=== PATIENT | female | born 1995 | race Caucasian/White ===

== ENCOUNTER 2016-09-20 08:36 | Emergency (ER) | payer BC ==
[2016-09-20 08:44] VITALS: BP 115/79; PULSE 76; RESP 16; TEMP 98.4
[2016-09-20] MEDS ORDERED: TOPICAL SKIN ADHESIVE 1 EACH AMP TOPICAL ONE (08:50)
--- NOTE | 2016-09-20 09:06 | ED ---
General Adult HPI - General Chief complaint: Wound/Laceration Stated complaint: Fall Time Seen by Provider: 09/20/16 08:46 Source: patient, RN notes reviewed Mode of arrival: ambulatory Limitations: no limitations - History of Present Illness Initial comments: Patient 20-year-old female who presents emergency room today with a chief complaint of a laceration to the left side of her back. She does admit that she was getting out of the shower slipped falling hitting the back against the toilet roll cassidy causing this laceration. She states her tetanus is up-to- date. Denies any head injury or loss conscious. Denies any other complaints or symptoms. Patient denies any recent fever, chills, shortness of breath, chest pain, back pain, abdominal pain, nausea or vomiting, numbness or tingling , dysuria or hematuria, constipation or diarrhea, headaches or visual changes, or any other complaints. - Related Data Home Medications Medication Instructions Recorded Confirmed Escitalopram [Lexapro] 15 mg PO DAILY 09/25/14 09/25/14 Previous Rx's Medication Instructions Recorded traZODone HCL [Desyrel] 50 mg PO HS #30 tab 11/22/13 Allergies Allergy/AdvReac Type Severity Reaction Status Date / Time loracarbef [From Lorabid] Allergy Unknown Verified 09/20/16 08:44 Review of Systems ROS Statement: Those systems with pertinent positive or pertinent negative responses have been documented in the HPI. ROS Other: All systems not noted in ROS Statement are negative. Past Medical History Past Medical History: Supraventricular Tachycardia (SVT) Additional Past Medical History / Comment(s): SVT since age 5 under control History of Any Multi-Drug Resistant Organisms: None Reported Past Surgical History: Adenoidectomy Past Psychological History: Anxiety, Depression Smoking Status: Never smoker Past Alcohol Use History: Occasional Past Drug Use History: None Reported General Exam - General Exam Comments Initial Comments: General: The patient is awake and alert, in no distress, and does not appear acutely ill. Eye: Pupils are equal, round and reactive to light, extra-ocular movements are intact. No nystagmus. There is normal conjunctiva bilaterally. No signs of icterus. Ears, nose, mouth and throat: There are moist mucous membranes and no oral lesions. Neck: The neck is supple, there is no tenderness or JVD. Cardiovascular: There is a regular rate and rhythm. No murmur, rub or gallop is appreciated. Respiratory: Lungs are clear to auscultation, respirations are non-labored, breath sounds are equal. No wheezes, stridor, rales, or rhonchi. Musculoskeletal: Normal ROM, no tenderness. Strength 5/5. Sensation intact. Pulses equal bilaterally 2+. Neurological: A&O x 3. CN II-XII intact, There are no obvious motor or sensory deficits. Coordination appears grossly intact. Speech is normal. Skin: 2.5 cm laceration to the posterior left side of her back. No active bleeding. Psychiatric: Cooperative, appropriate mood & affect, normal judgment. Limitations: no limitations Course Vital Signs 09/20/16 08:41 Temperature 98.4 F Pulse Rate 76 Respiratory 16 Rate Blood Pressure 115/79 O2 Sat by Pulse 100 Oximetry Procedures - Procedures Initial comment: 2.5 cm laceration to the left side of the back. Laceration irrigated with saline. Approximated and closed with Dermabond. Patient tolerated well. Disposition Clinical Impression: Laceration Disposition: HOME SELF-CARE Condition: Good Instructions: Laceration (ED) Additional Instructions: Please allow glue to fall off on its own over the next 2-5 days. Please watch for any signs of infection which may include increased pain, swelling, redness, fever or chills. Please return to emergency room if the symptoms increase or worsen or for any other concerns. Referrals: Hieu Nuñez MD [Primary Care Provider] - 1-2 days Time of Disposition: 09:05
== END 2016-09-20 09:36 | disposition home or self-care (01) ==
LOC: EC 08:36
DX: S31.010A Laceration without foreign body of lower back and pelvis without penetration into retroperitoneum, initial encounter (principal); F32.9 Major depressive disorder, single episode, unspecified; F41.9 Anxiety disorder, unspecified; Z79.899 Other long term (current) drug therapy; Z88.8 Allergy status to other drugs, medicaments and biological substances; W01.198A Fall on same level from slipping, tripping and stumbling with subsequent striking against other object, initial encounter; Y92.002 Bathroom of unspecified non-institutional (private) residence as the place of occurrence of the external cause
CPT/HCPCS: 12001; 99282

== ENCOUNTER 2019-03-24 11:46 | Emergency (ER) | payer BC ==
[2019-03-24] MEDS ORDERED: ADENOSINE 3 MG/ML 2 ML VIAL IVP STA (12:18)
[2019-03-24] MEDS ORDERED: SODIUM CHLORIDE 0.9% 1,000 ML IV STA (12:26)
[2019-03-24 12:50] LABS: Basophils % (A) 1 %; Eosinophils % (A) 1 %; HCT 37.7 % (34.0-46.0); HGB 13.1 gm/dL (11.4-16.0); Lymphocytes # (A) 1.7 k/uL (1.0-4.8); Lymphocytes % (A) 33 %; MCH 33.7 pg (25.0-35.0); MCHC 34.7 g/dL (31.0-37.0); MCV 97.1 fL (80.0-100.0); Mean Platelet Volume 8.3; Monocytes # (A) 0.3 k/uL (0-1.0); Monocytes % (A) 5 %; Neutrophils % (A) 58 %; Platelet Count 274 k/uL (150-450); RBC 3.88 m/uL (3.80-5.40); RDW 12.2 % (11.5-15.5); WBC 5.1 k/uL (3.8-10.6)
[2019-03-24 13:06] LABS: ALT 8 U/L (4-34); AST 21 U/L (14-36); African American GFR (CKD) >90 (>60 ml/min/1.73 sqM); Alkaline Phosphatase 61 U/L (38-126); Anion Gap 7 mmol/L; Blood Urea Nitrogen 9 mg/dL (7-17); Calcium 9.4 mg/dL (8.4-10.2); Carbon Dioxide 23 mmol/L (22-30); Chloride 109 mmol/L (98-107); Glucose 87 mg/dL (74-99); Magnesium 2.1 mg/dL (1.6-2.3); Non-African American GFR(CKD) >90 (>60 ml/min/1.73 sqM); Potassium 4.3 mmol/L (3.5-5.1); Sodium 139 mmol/L (137-145); Total Bilirubin 0.7 mg/dL (0.2-1.3); Total Protein 6.6 g/dL (6.3-8.2)
--- NOTE | 2019-03-24 13:11 | XR ---
EXAMINATION TYPE: XR chest 2V DATE OF EXAM: 03/24/2019 CLINICAL HISTORY: Dysrhythmia. TECHNIQUE: Frontal and lateral views of the chest are obtained. COMPARISON: None FINDINGS: Overlying EKG leads are seen. There is no focal air space opacity, pleural effusion, or pne umothorax seen. The cardiac silhouette size is within normal limits. The osseous structures are in tact. IMPRESSION: No acute cardiopulmonary process. No significant change from prior.
--- NOTE | 2019-03-24 13:52 | ED ---
Arrhythmia/Palpitations HPI - General Chief Complaint: Arrhythmia/Palpitations Stated Complaint: SVT Time Seen by Provider: 03/24/19 11:55 Source: patient Mode of arrival: ambulatory Limitations: no limitations - History of Present Illness Initial Comments: The patient is a 23-year-old female with past medical history of SVT who presents to the emergency room in with chest palpitations. She states that she has had multiple episodes of SVT since she was 5 years old. She does have atenolol at home at her disposal that she can take when she gets palpitations. Around 7 PM last night she began having a rapid heart rate. She said that she took 4 of her 10 mg atenolol's, each were half hour apart. Last dose was taken around 9 PM. She states that normally her heart rate will slow on its own. She did attempt to go to sleep and woke up and still had symptoms. She does see a [employer] administrator in [place]. They have discussed ablation with her however she has yet to follow up. States that she will have an episode once every 5 months. She has frequently had to have adenosine for persistent palpitations. She denies any inciting triggers. No increased pain intake. Denies possibility been . Denies any chest pain or shortness of breath. No fevers or chills. Denies any recent illnesses. There are no alleviating, precipitating or modifying factors - Related Data Home Medications Medication Instructions Recorded Confirmed Atenolol [Tenormin] 25 mg PO DAILY 03/24/19 03/24/19 Escitalopram [Lexapro] 20 mg PO DAILY 03/24/19 03/24/19 LORazepam [Ativan] 0.5 mg PO BID 03/24/19 03/24/19 Melatonin 10 mg PO HS 03/24/19 03/24/19 Norethindrone-E.estradiol-Iron 1 cap PO DAILY 03/24/19 03/24/19 [Taytulla 1 mg-20 Mcg Capsule] Allergies Allergy/AdvReac Type Severity Reaction Status Date / Time loracarbef [From Lorabid] Allergy Rash/Hives Verified 09/20/16 09:06 Review of Systems ROS Statement: Those systems with pertinent positive or pertinent negative responses have been documented in the HPI. ROS Other: All systems not noted in ROS Statement are negative. Past Medical History Past Medical History: Supraventricular Tachycardia (SVT) Additional Past Medical History / Comment(s): SVT since age 5 under control History of Any Multi-Drug Resistant Organisms: None Reported Past Surgical History: Adenoidectomy Past Psychological History: Anxiety, Depression Smoking Status: Never smoker Past Alcohol Use History: Occasional Past Drug Use History: None Reported General Exam Limitations: no limitations General appearance: alert, in no apparent distress Head exam: Present: atraumatic, normocephalic, normal inspection Eye exam: Present: normal appearance, PERRL, EOMI. Absent: scleral icterus, conjunctival injection, periorbital swelling ENT exam: Present: normal exam, mucous membranes moist Neck exam: Present: normal inspection. Absent: tenderness, meningismus, lymphadenopathy Respiratory exam: Present: normal lung sounds bilaterally. Absent: respiratory distress, wheezes, rales, rhonchi, stridor Cardiovascular Exam: Present: normal rhythm, tachycardia, normal heart sounds. Absent: systolic murmur, diastolic murmur, rubs, gallop, clicks GI/Abdominal exam: Present: soft, normal bowel sounds. Absent: distended, tenderness, guarding, rebound, rigid Extremities exam: Present: normal inspection, full ROM, normal capillary refill. Absent: tenderness, pedal edema, joint swelling, calf tenderness Back exam: Present: normal inspection Neurological exam: Present: alert, oriented X3, CN II-XII intact Psychiatric exam: Present: normal affect, normal mood Skin exam: Present: warm, dry, intact, normal color. Absent: rash Course Vital Signs 03/24/19 03/24/19 03/24/19 11:58 12:03 12:24 Temperature 97.4 F L Pulse Rate 164 H 155 H 103 H Respiratory 19 22 Rate Blood Pressure 87/70 102/76 O2 Sat by Pulse 100 100 Oximetry 03/24/19 03/24/19 03/24/19 13:00 13:51 14:30 Temperature 98.3 F Pulse Rate 94 95 88 Respiratory 19 17 18 Rate Blood Pressure 94/64 96/74 111/69 O2 Sat by Pulse 100 98 98 Oximetry EKG Findings - EKG Comments: EKG Findings:: EKG performed at 1213 demonstrates supraventricular tachycardia with rate 155. QRS knee. QTC of 449. st segment elevations or depressions concerning for ischemic changes. No signs of Ioecm-[id number] or Brugada syndrome. EKG performed at 1223 after adenosine having given shows a normal sinus rhythm with ventricular rate of 96. SD interval 138. QRS 76. QTC of 424. There are no acute ST segment elevations or depressions concerning for ischemic changes Medical Decision Making - Medical Decision Making Upon arrival the patient was placed in the trauma bay 2. She is hooked up to continuous pulse ox and cardiac monitoring. Peripheral IV is established. Vagal maneuvers are attempted on the patient about improvement. 12-lead EKG is performed which demonstrates the patient is in SVT. I did provide her with 6 mg of adenosine for which she does convert. Repeat EKG does demonstrate a normal sinus rhythm. I did recommend complete laboratory studies which were normal. HCG was negative. Urinalysis shows 8 squamous epithelial cells with rare bacteria. Chest x-ray demonstrates no acute findings. Discussed results with the patient. She does request to go home at this time. I did give her follow- up information for Dr. Whalen's office. Return to the emergency room for any new or worsening symptoms. The patient was then discharged home in stable condition - Lab Data Result diagrams: 03/24/19 12:30 03/24/19 12:30 Lab Results 03/24/19 03/24/19 03/24/19 Range/Units 12:30 12:30 13:30 WBC 5.1 (3.8-10.6) k/uL RBC 3.88 (3.80-5.40) m/uL Hgb 13.1 (11.4-16.0) gm/dL Hct 37.7 (34.0-46.0) % MCV 97.1 (80.0-100.0) fL MCH 33.7 (25.0-35.0) pg MCHC 34.7 (31.0-37.0) g/dL RDW 12.2 (11.5-15.5) % Plt Count 274 (150-450) k/uL Neutrophils % 58 % Lymphocytes % 33 % Monocytes % 5 % Eosinophils % 1 % Basophils % 1 % Neutrophils # 3.0 (1.3-7.7) k/uL Lymphocytes # 1.7 (1.0-4.8) k/uL Monocytes # 0.3 (0-1.0) k/uL Eosinophils # 0.0 (0-0.7) k/uL Basophils # 0.0 (0-0.2) k/uL Sodium 139 (137-145) mmol/L Potassium 4.3 (3.5-5.1) mmol/L Chloride 109 H (98-107) mmol/L Carbon Dioxide 23 (22-30) mmol/L Anion Gap 7 mmol/L BUN 9 (7-17) mg/dL Creatinine 0.77 (0.52-1.04) mg/dL Est GFR (CKD-EPI)AfAm >90 (>60 ml/min/1.73 sqM) Est GFR (CKD-EPI)NonAf >90 (>60 ml/min/1.73 sqM) Glucose 87 (74-99) mg/dL Calcium 9.4 (8.4-10.2) mg/dL Magnesium 2.1 (1.6-2.3) mg/dL Total Bilirubin 0.7 (0.2-1.3) mg/dL AST 21 (14-36) U/L ALT 8 (4-34) U/L Alkaline Phosphatase 61 (38-126) U/L Total Protein 6.6 (6.3-8.2) g/dL Albumin 4.0 (3.5-5.0) g/dL TSH 1.140 (0.465-4.680) mIU/L Urine Color Urine Appearance (Clear) Urine pH (5.0-8.0) Ur Specific [place] (1.001-1.035) Urine Protein (Negative) Urine Glucose (UA) (Negative) Urine Ketones (Negative) Urine Blood (Negative) Urine Nitrite (Negative) Urine Bilirubin (Negative) Urine Urobilinogen (<2.0) mg/dL Ur Leukocyte Esterase (Negative) Urine WBC (0-5) /hpf Ur Squamous Epith Cells (0-4) /hpf Urine Bacteria (None) /hpf Urine Mucus (None) /hpf Urine HCG, Qual Not Detected (Not Detectd) 03/24/19 Range/Units 13:30 WBC (3.8-10.6) k/uL RBC (3.80-5.40) m/uL Hgb (11.4-16.0) gm/dL Hct (34.0-46.0) % MCV (80.0-100.0) fL MCH (25.0-35.0) pg MCHC (31.0-37.0) g/dL RDW (11.5-15.5) % Plt Count (150-450) k/uL Neutrophils % % Lymphocytes % % Monocytes % % Eosinophils % % Basophils % % Neutrophils # (1.3-7.7) k/uL Lymphocytes # (1.0-4.8) k/uL Monocytes # (0-1.0) k/uL Eosinophils # (0-0.7) k/uL Basophils # (0-0.2) k/uL Sodium (137-145) mmol/L Potassium (3.5-5.1) mmol/L Chloride (98-107) mmol/L Carbon Dioxide (22-30) mmol/L Anion Gap mmol/L BUN (7-17) mg/dL Creatinine (0.52-1.04) mg/dL Est GFR (CKD-EPI)AfAm (>60 ml/min/1.73 sqM) Est GFR (CKD-EPI)NonAf (>60 ml/min/1.73 sqM) Glucose (74-99) mg/dL Calcium (8.4-10.2) mg/dL Magnesium (1.6-2.3) mg/dL Total Bilirubin (0.2-1.3) mg/dL AST (14-36) U/L ALT (4-34) U/L Alkaline Phosphatase (38-126) U/L Total Protein (6.3-8.2) g/dL Albumin (3.5-5.0) g/dL TSH (0.465-4.680) mIU/L Urine Color Yellow Urine Appearance Cloudy H (Clear) Urine pH 7.5 (5.0-8.0) Ur Specific [place] 1.013 (1.001-1.035) Urine Protein Negative (Negative) Urine Glucose (UA) Negative (Negative) Urine Ketones Negative (Negative) Urine Blood Negative (Negative) Urine Nitrite Negative (Negative) Urine Bilirubin Negative (Negative) Urine Urobilinogen <2.0 (<2.0) mg/dL Ur Leukocyte Esterase Trace H (Negative) Urine WBC 2 (0-5) /hpf Ur Squamous Epith Cells 8 H (0-4) /hpf Urine Bacteria Rare H (None) /hpf Urine Mucus Rare H (None) /hpf Urine HCG, Qual (Not Detectd) Critical Care Time Critical Care Time: Yes Total Critical Care Time: 35 (mins) Disposition Clinical Impression: Supraventricular tachycardia Disposition: HOME SELF-CARE Condition: Stable Instructions (If sedation given, give patient instructions): Supraventricular Tachycardia (ED) Additional Instructions: Please follow up with Dr. Caceres in office for further evaluation. Return to the emergency room for any new or worsening symptoms Is patient prescribed a controlled substance at d/c from ED?: No Referrals: Antoine Bailey MD [Primary Care Provider] - 1-2 days Paco Abel MD [STAFF PHYSICIAN] - 1-2 days Time of Disposition: 14:02
[2019-03-24 14:19] LABS: Appearance,Urine Cloudy (Clear); Bacteria,Urine Rare /hpf; Bilirubin,Urine Negative (Negative); Blood,Urine Negative (Negative); Color,Urine Yellow; Glucose,Urine (UA) Negative (Negative); Ketones,Urine Negative (Negative); Leukocyte Esterase,Urine Trace (Negative); Mucus,Urine Rare /hpf; Nitrite,Urine Negative (Negative); PH, Urine 7.5 (5.0-8.0); Protein,Urine Negative (Negative); Specific Gravity,Urine 1.013 (1.001-1.035); Squamous Epithelial Cell,Urine 8 /hpf (0-4); Urobilinogen,Urine <2.0 mg/dL (<2.0); WBC,Urine 2 /hpf (0-5)
[2019-03-24 14:37] VITALS: BP 111/69; PULSE 88; RESP 18; TEMP 98.3
== END 2019-03-24 14:30 | disposition home or self-care (01) ==
LOC: EC 11:46
DX: I47.1 Supraventricular tachycardia (principal); R82.998 Other abnormal findings in urine; F41.9 Anxiety disorder, unspecified; F32.9 Major depressive disorder, single episode, unspecified; Z79.899 Other long term (current) drug therapy; Z79.3 Long term (current) use of hormonal contraceptives; Z88.1 Allergy status to other antibiotic agents
CPT/HCPCS: 96374; 99291; 96361; 36415; 93005; 80053; 83735; 84443; 85025; 81001; 81025; 71046; J0153

== ENCOUNTER 2019-04-12 03:38 | Emergency (ER) | payer BC ==
[2019-04-12 03:54] VITALS: TEMP 98.1
[2019-04-12] MEDS ORDERED: LORazepam 1 MG TAB PO STA (04:15)
[2019-04-12] MEDS ORDERED: ATENOLOL 25 MG TAB PO STA (04:15)
--- NOTE | 2019-04-12 04:17 | ED ---
General Adult HPI - General Chief complaint: Anxiety Stated complaint: Panic attack Time Seen by Provider: 04/12/19 03:53 Source: patient Mode of arrival: ambulatory Limitations: no limitations - History of Present Illness Initial comments: Mari taylor 23-year-old female with a history of SVT who presents to the ER today for evaluation of palpitations, concerned that she is in SVT an acute anxiety. Patient reports that she woke from sleep having a bad dream and feeling like her heart was racing. She tried to calm herself but her heart continued to race and she is concerned she was in SVT. She didn't have any of her atenolol with her so she decided to come to the emergency department for further evaluation. Patient reports she really feels that she started to panic due to her heart racing but she is feeling better since arrival in the emergency department. She denies any chest pain passing out. Her last episode of SVT was in March. 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 Patient states she doesn't take of atenolol daily and only takes it when she is having palpitations - Related Data Home Medications Medication Instructions Recorded Confirmed Atenolol [Tenormin] 25 mg PO DAILY 03/24/19 03/24/19 Escitalopram [Lexapro] 20 mg PO DAILY 03/24/19 03/24/19 LORazepam [Ativan] 0.5 mg PO BID 03/24/19 03/24/19 Melatonin 10 mg PO HS 03/24/19 03/24/19 Norethindrone-E.estradiol-Iron 1 cap PO DAILY 03/24/19 03/24/19 [Taytulla 1 mg-20 Mcg Capsule] Allergies Allergy/AdvReac Type Severity Reaction Status Date / Time loracarbef [From Lorabid] Allergy Rash/Hives Verified 04/12/19 03:47 Review of Systems ROS Statement: Those systems with pertinent positive or pertinent negative responses have been documented in the HPI. ROS Other: All systems not noted in ROS Statement are negative. Past Medical History Past Medical History: Supraventricular Tachycardia (SVT) Additional Past Medical History / Comment(s): SVT since age 5 under control History of Any Multi-Drug Resistant Organisms: None Reported Past Surgical History: Adenoidectomy Past Psychological History: Anxiety, Depression, Panic Disorder Smoking Status: Never smoker Past Alcohol Use History: Occasional Past Drug Use History: Marijuana General Exam - General Exam Comments Initial Comments: Physical Exam GENERAL: Patient is well-developed and well-nourished. Patient is nontoxic and well- hydrated and is in no distress. HENT: Normocephalic, Atraumatic. EYES: PERRL, EOMI PULMONARY: Unlabored respirations. No audible rales rhonchi or wheezing was noted. CARDIOVASCULAR: Tachycardic, regular warm and well perfused extremities ABDOMEN: Soft and nontender with normal bowel sounds. SKIN: Skin is clear with no lesions or rashes and otherwise unremarkable. : Deferred NEUROLOGIC: Patient is alert and oriented x3. Moving all extremities spontaneously MUSCULOSKELETAL: Normal extremities with adequate strength and full range of motion. No lower extremity swelling or edema. No calf tenderness. PSYCHIATRIC: Appropriate situational anxiety Limitations: no limitations Course Vital Signs 04/12/19 04/12/19 03:45 04:30 Temperature 98.1 F Pulse Rate 143 H 120 H Respiratory 20 18 Rate Blood Pressure 140/83 123/80 O2 Sat by Pulse 97 98 Oximetry EKG Findings - EKG Comments: EKG Findings:: EKG was obtained due to tachycardia, EKG was obtained at 3:55 AM, rate is 126 rhythm is sinus tachycardia normal axis, normal intervals, MA 1:30, curious 90, QTc [address] elevations or depressions no evidence of acute ischemia or infarction. This is not an SVT pattern. Medical Decision Making - Medical Decision Making She was seen and evaluated history is obtained from the patient, upon arrival in the emergency department patient was tachycardic to the 140s however bedside EKG was obtained she dirty improved to the 1 teens and on evaluation was in the low 1 teens. States she was concerned that she had SVT and that made her very anxious which prompted her to come to the ER. She did not take her atenolol prior to arrival. She had no chest pain. Oral atenolol and Ativan were ordered and given. Reevaluation patient was sleeping comfortably, she reported feeling much better and comfortable plan for discharge home she did request a prescription for Ativan I advised this is not prescribed by urology follow-up with primary care physician for this. I did advise she follow with her bag machine operator helper given her recurrent episodes of tachycardia they seem to be happening more critically. Disposition Clinical Impression: Heart palpitations Disposition: HOME SELF-CARE Condition: Stable Instructions (If sedation given, give patient instructions): Heart Palpitations (DC) Is patient prescribed a controlled substance at d/c from ED?: No Referrals: Antoine Bailey MD [Primary Care Provider] - 1-2 days
[2019-04-12 04:31] VITALS: BP 123/80; PULSE 120; RESP 18
== END 2019-04-12 05:43 | disposition home or self-care (01) ==
LOC: EC 03:38
DX: R00.2 Palpitations (principal); R00.0 Tachycardia, unspecified; F43.22 Adjustment disorder with anxiety; F32.9 Major depressive disorder, single episode, unspecified; Z88.1 Allergy status to other antibiotic agents; Z79.3 Long term (current) use of hormonal contraceptives; Z79.899 Other long term (current) drug therapy
CPT/HCPCS: 93005; 99283

== ENCOUNTER 2020-12-04 21:56 | Inpatient (IN) | payer BC, MEDICAID, OTHER ==
--- NOTE | 2020-12-04 23:05 | ED ---
Psych HPI <Oz Reagan - Last Filed: 12/05/20 01:06> - General Source: patient, police, RN notes reviewed Limitations: no limitations <Sergio Berry - Last Filed: 12/05/20 01:22> - General Chief Complaint: Psychiatric Symptoms Stated Complaint: Petition Time Seen by Provider: 12/04/20 21:58 - History of Present Illness Initial Comments: This a 24-year-old female presents emergency Department with police for psychiatric evaluation. Patient was picked up on a court ordered waste picker for evaluation. She is unclear why this is happening patient states she did walk out of her appointment with her therapist today states that she is new to her and that she just doesn't understand her. Patient denies complaints or homicid al does admit to marijuana use or drug abuse denies alcohol abuse. Patient has no physical complaints. (Sergio Berry) - Related Data Home Medications Medication Instructions Recorded Confirmed LORazepam [Ativan] 0.5 mg PO BID PRN 03/24/19 12/04/20 Norethindrone AC-Eth Estradiol 1 tab PO DAILY 12/04/20 12/04/20 [Aurovela 1 mg-20 Mcg Tablet] Venlafaxine HCl ER [Effexor XR] 75 mg PO DAILY 12/04/20 12/04/20 Allergies Allergy/AdvReac Type Severity Reaction Status Date / Time loracarbef [From Lorabid] Allergy Rash/Hives Verified 12/04/20 23:19 Review of Systems ROS Other: All systems not noted in ROS Statement are negative. <Oz Reagan - Last Filed: 12/05/20 01:06> ROS Other: All systems not noted in ROS Statement are negative. <Sergio Berry - Last Filed: 12/05/20 01:22> ROS Statement: Those systems with pertinent positive or pertinent negative responses have been documented in the HPI. Past Medical History Past Medical History: Supraventricular Tachycardia (SVT) Additional Past Medical History / Comment(s): SVT since age 5 under control History of Any Multi-Drug Resistant Organisms: None Reported Past Surgical History: Adenoidectomy Past Psychological History: Anxiety, Depression Smoking Status: Current every day smoker Past Drug Use History: None Reported <Sergio Berry - Last Filed: 12/05/20 01:22> General Exam Limitations: no limitations General appearance: alert, in no apparent distress Head exam: Present: atraumatic, normocephalic, normal inspection Neck exam: Present: normal inspection. Absent: tenderness, meningismus, lymphadenopathy Respiratory exam: Present: normal lung sounds bilaterally. Absent: respiratory distress, wheezes, rales, rhonchi, stridor Cardiovascular Exam: Present: regular rate, normal rhythm, normal heart sounds. Absent: systolic murmur, diastolic murmur, rubs, gallop, clicks Psychiatric exam: Present: agitated Skin exam: Present: warm, dry, intact, normal color. Absent: rash <Sergio Berry - Last Filed: 12/05/20 01:22> Course Vital Signs 12/04/20 22:05 Temperature 98 F Pulse Rate 90 Respiratory 24 Rate Blood Pressure 122/77 O2 Sat by Pulse 97 Oximetry Medical Decision Making <Oz Reagan - Last Filed: 12/05/20 01:06> <Sergio Berry - Last Filed: 12/05/20 01:22> - Medical Decision Making I did see this patient, conducted the interview and file the clinical certificate. (Oz Reagan) Patient was a valid by EPS case discussed with psychiatrist patient will be admitted for further evaluation. (Sergio Berry) - Lab Data Lab Results 12/04/20 12/05/20 Range/Units 22:10 00:45 Urine Opiates Screen Not Detected (NotDetected) Ur Oxycodone Screen Not Detected (NotDetected) Urine Methadone Screen Not Detected (NotDetected) Ur Propoxyphene Screen Not Detected (NotDetected) Ur Barbiturates Screen Not Detected (NotDetected) U Tricyclic Antidepress Not Detected (NotDetected) Ur Phencyclidine Scrn Not Detected (NotDetected) Ur Amphetamines Screen Not Detected (NotDetected) U Methamphetamines Scrn Not Detected (NotDetected) U Benzodiazepines Scrn Not Detected (NotDetected) Urine Cocaine Screen Not Detected (NotDetected) U Marijuana (THC) Screen Detected H (NotDetected) Coronavirus (PCR) Not Detected (Not Detectd) Disposition <Oz Reagan - Last Filed: 12/05/20 01:06> <Sergio Berry - Last Filed: 12/05/20 01:22> Clinical Impression: Depression Disposition: TRANSFER TO PSYCH HOSP/UNIT Referrals: None,Stated [Primary Care Provider] - 1-2 days
[2020-12-04 23:21] LABS: Amphetamine Screen,Urine Not Detected (NotDetected); Barbiturate Screen,Urine Not Detected (NotDetected); Benzodiazepines Screen,Urine Not Detected (NotDetected); Cocaine Screen,Urine Not Detected (NotDetected); Methadone Screen, Urine Not Detected (NotDetected); Opiate Screen,Urine Not Detected (NotDetected); Oxycodone Screen, Urine Not Detected (NotDetected); Phencyclidine Screen,Urine Not Detected (NotDetected); Tricyclic Antidepressant,Urine Not Detected (NotDetected); Urn Cannabinoid Scrn Detected (NotDetected)
[2020-12-05] MEDS ORDERED: MAGNESIUM HYDROXIDE 2,400 MG/10 ML CUP PO PRN (01:45)
[2020-12-05] MEDS ORDERED: ACETAMINOPHEN TAB 325 MG TAB PO PRN (01:45)
[2020-12-05] MEDS ORDERED: MAG HYDROX/AL HYDROX/SIMETH 30 ML CUP PO PRN (01:45)
[2020-12-05] MEDS ORDERED: HALOPERIDOL LACTATE 5 MG/ML 1 ML VIAL IM PRN (01:50)
[2020-12-05] MEDS ORDERED: haloperidoL 5 MG TAB PO PRN ×2 (01:50→03:30)
[2020-12-05] MEDS ORDERED: LORazepam 2 MG/ML INJ IM PRN ×2 (01:50→01:52)
[2020-12-05] MEDS ORDERED: VENLAFAXINE HCL 75 MG TAB PO SCH ×2 (02:30→09:00)
[2020-12-05 02:34] LABS: Appearance,Urine Clear (Clear); Bacteria,Urine Rare /hpf; Bilirubin,Urine Negative (Negative); Blood,Urine Large (Negative); Color,Urine Light Yellow; Glucose,Urine (UA) Negative (Negative); Ketones,Urine Negative (Negative); Leukocyte Esterase,Urine Negative (Negative); Nitrite,Urine Negative (Negative); PH, Urine 6.5 (5.0-8.0); Protein,Urine Negative (Negative); RBC,Urine 6 /hpf (0-5); Specific Gravity,Urine 1.005 (1.001-1.035); Squamous Epithelial Cell,Urine 6 /hpf (0-4); Urobilinogen,Urine <2.0 mg/dL (<2.0); WBC,Urine 1 /hpf (0-5)
[2020-12-05] MEDS: LORazepam 1 MG TAB PO PRN ×2 (02:36→14:27)
[2020-12-05 08:03] LABS: Basophils % (A) 0 %; Eosinophils % (A) 0 %; HGB 12.7 gm/dL (11.4-16.0); Lymphocytes # (A) 1.4 k/uL (1.0-4.8); Lymphocytes % (A) 15 %; MCHC 33.5 g/dL (31.0-37.0); MCV 101.7 fL (80.0-100.0); Macrocytosis Slight; Mean Platelet Volume 8.2; Monocytes # (A) 0.3 k/uL (0-1.0); Monocytes % (A) 3 %; Neutrophils # (A) 7.4 k/uL (1.3-7.7); Neutrophils % (A) 80 %; Platelet Count 294 k/uL (150-450); RBC 3.74 m/uL (3.80-5.40); RDW 13.2 % (11.5-15.5); WBC 9.3 k/uL (3.8-10.6)
[2020-12-05 08:15] LABS: ALT 6 U/L (4-34); AST 24 U/L (14-36); African American GFR (CKD) >90 (>60 ml/min/1.73 sqM); Albumin 4.4 g/dL (3.5-5.0); Alkaline Phosphatase 76 U/L (38-126); Anion Gap 11 mmol/L; Bilirubin, Delta 0.1 mg/dL (0.0-0.2); Bilirubin,Unconjugated 0.6 mg/dL (0.0-1.1); Blood Urea Nitrogen 8 mg/dL (7-17); Calcium 9.9 mg/dL (8.4-10.2); Carbon Dioxide 22 mmol/L (22-30); Chloride 105 mmol/L (98-107); Glucose 95 mg/dL (74-99); Non-African American GFR(CKD) >90 (>60 ml/min/1.73 sqM); Sodium 138 mmol/L (137-145); Total Bilirubin 0.7 mg/dL (0.2-1.3); Total Protein 7.2 g/dL (6.3-8.2)
[2020-12-05] MEDS ORDERED: NICOTINE 14MG/24HR PATCH TRANSDERM SCH (09:00)
--- NOTE | 2020-12-05 12:02 | P.HP ---
Psychiatric H&P - . H&P Date: 12/05/20 History & Physical: Allergies Allergy/AdvReac Type Severity Reaction Status Date / Time loracarbef From Lorabid Allergy Rash/Hives Verified 12/04/20 23:19 Vital Signs Temp 98.1 F 12/05/20 02:34 Pulse 121 H 12/05/20 02:34 Resp 16 12/05/20 02:34 BP 126/80 12/05/20 02:34 Pulse Ox 98 12/05/20 02:34 Intake & Output 12/04/20 12/05/20 12/05/20 18:59 06:59 18:59 Weight 55 kg Laboratory Last Values WBC 9.3 k/uL (3.8-10.6) 12/05/20 07:01 RBC 3.74 m/uL (3.80-5.40) L 12/05/20 07:01 Hgb 12.7 gm/dL (11.4-16.0) 12/05/20 07:01 Hct 38.0 % (34.0-46.0) 12/05/20 07:01 MCV 101.7 fL (80.0-100.0) H 12/05/20 07:01 MCH 34.0 pg (25.0-35.0) 12/05/20 07:01 MCHC 33.5 g/dL (31.0-37.0) 12/05/20 07:01 RDW 13.2 % (11.5-15.5) 12/05/20 07:01 Plt Count 294 k/uL (150-450) 12/05/20 07:01 MPV 8.2 12/05/20 07:01 Neutrophils % 80 % 12/05/20 07:01 Lymphocytes % 15 % 12/05/20 07:01 Monocytes % 3 % 12/05/20 07:01 Eosinophils % 0 % 12/05/20 07:01 Basophils % 0 % 12/05/20 07:01 Neutrophils # 7.4 k/uL (1.3-7.7) 12/05/20 07:01 Lymphocytes # 1.4 k/uL (1.0-4.8) 12/05/20 07:01 Monocytes # 0.3 k/uL (0-1.0) 12/05/20 07:01 Eosinophils # 0.0 k/uL (0-0.7) 12/05/20 07:01 Basophils # 0.0 k/uL (0-0.2) 12/05/20 07:01 Macrocytosis Slight 12/05/20 07:01 Sodium 138 mmol/L (137-145) 12/05/20 07:01 Potassium 4.0 mmol/L (3.5-5.1) 12/05/20 07:01 Chloride 105 mmol/L (98-107) 12/05/20 07:01 Carbon Dioxide 22 mmol/L (22-30) 12/05/20 07:01 Anion Gap 11 mmol/L 12/05/20 07:01 BUN 8 mg/dL (7-17) 12/05/20 07:01 Creatinine 0.54 mg/dL (0.52-1.04) 12/05/20 07:01 Est GFR (CKD-EPI)AfAm >90 (>60 ml/min/1.73 sqM) 12/05/20 07:01 Est GFR (CKD-EPI)NonAf >90 (>60 ml/min/1.73 sqM) 12/05/20 07:01 Glucose 95 mg/dL (74-99) 12/05/20 07:01 Calcium 9.9 mg/dL (8.4-10.2) 12/05/20 07:01 Total Bilirubin 0.7 mg/dL (0.2-1.3) 12/05/20 07:01 Conjugated Bilirubin 0.0 mg/dL (0.0-0.3) 12/05/20 07:01 Unconjugated Bilirubin 0.6 mg/dL (0.0-1.1) 12/05/20 07:01 Delta Bilirubin 0.1 mg/dL (0.0-0.2) 12/05/20 07:01 AST 24 U/L (14-36) 12/05/20 07:01 ALT 6 U/L (4-34) 12/05/20 07:01 Alkaline Phosphatase 76 U/L (38-126) 12/05/20 07:01 Total Protein 7.2 g/dL (6.3-8.2) 12/05/20 07:01 Albumin 4.4 g/dL (3.5-5.0) 12/05/20 07:01 TSH 1.430 mIU/L (0.465-4.680) 12/05/20 07:01 Urine Color Light Yellow 12/05/20 Unknown Urine Appearance Clear (Clear) 12/05/20 Unknown Urine pH 6.5 (5.0-8.0) 12/05/20 Unknown Ur Specific [place] 1.005 (1.001-1.035) 12/05/20 Unknown Urine Protein Negative (Negative) 12/05/20 Unknown Urine Glucose (UA) Negative (Negative) 12/05/20 Unknown Urine Ketones Negative (Negative) 12/05/20 Unknown Urine Blood Large (Negative) H 12/05/20 Unknown Urine Nitrite Negative (Negative) 12/05/20 Unknown Urine Bilirubin Negative (Negative) 12/05/20 Unknown Urine Urobilinogen <2.0 mg/dL (<2.0) 12/05/20 Unknown Ur Leukocyte Esterase Negative (Negative) 12/05/20 Unknown Urine RBC 6 /hpf (0-5) H 12/05/20 Unknown Urine WBC 1 /hpf (0-5) 12/05/20 Unknown Ur Squamous Epith Cells 6 /hpf (0-4) H 12/05/20 Unknown Urine Bacteria Rare /hpf (None) H 12/05/20 Unknown Urine HCG, Qual Not Detected (Not Detectd) 12/05/20 Unknown Urine Opiates Screen Not Detected (NotDetected) 12/04/20 22:10 Ur Oxycodone Screen Not Detected (NotDetected) 12/04/20 22:10 Urine Methadone Screen Not Detected (NotDetected) 12/04/20 22:10 Ur Propoxyphene Screen Not Detected (NotDetected) 12/04/20 22:10 Ur Barbiturates Screen Not Detected (NotDetected) 12/04/20 22:10 U Tricyclic Antidepress Not Detected (NotDetected) 12/04/20 22:10 Ur Phencyclidine Scrn Not Detected (NotDetected) 12/04/20 22:10 Ur Amphetamines Screen Not Detected (NotDetected) 12/04/20 22:10 U Methamphetamines Scrn Not Detected (NotDetected) 12/04/20 22:10 U Benzodiazepines Scrn Not Detected (NotDetected) 12/04/20 22:10 Urine Cocaine Screen Not Detected (NotDetected) 12/04/20 22:10 U Marijuana (THC) Screen Detected (NotDetected) H 12/04/20 22:10 Coronavirus (PCR) Not Detected (Not Detectd) 12/05/20 00:45 12/05/20 11:20 IDENTIFYING DATA: Patient is a 24 yo female who has a hx of boderline and bipolar disorder who currently lives alone in an apartment, no kids, currently unemployed HPI: Patient presented to the hospital yesterday on a pick up attendant order brought in by police from [facility]. According to petition filled out by case packer at [facility] who states that patient was making suicidal comments about giving the treatment two weeks before she kills herself. Patient also mentioned in the ER that her therapist was new to her and didn't understand her. Her UDS positive for THC. Patient was seen wandering always and agreeable to speak to technical writer and editor in the office. She appeared to be tearful at times during the interview and was suspicious of technical writer and editor. She claims that she is feeling scared on the unit and claims that her [facility] appointment with her new therapist was not going well. She states that she was feeling depressed and suicidal and claims that "she didn't know what to say to me" and she states that she left the appointment early. She claims that she has stressors in her life including financially that her unemployment is going to "run out soon" and states that she cannot go back to work as she does not feel good. She had several questions about her diagnosis. She states that she is feeling sad and depressed. She claims that she is also suffering from anxiety. She states that she has been having chronic suicidal thoughts since she was 9 years old. She states that she also does have mood swings. She claims that her sleep has been "on and off". She claims that she is still feeling suicidal however no intent or plan today. Did describe manic symptoms in the past however was fairly vague. Patient denies any homicidal ideations intent or plan. At this time patient denies any auditory or visual hallucinations. Patient denies any flight of ideas racing thoughts and increased in goal directed behavior. Patient admits to using marijuana cheek daily approximately 1 joint a day. She states that she did not use any other recreational drugs and does not use cigarettes. PAST PSYCHIATRIC HISTORY: Patient states that she has a history of bipolar disorder and borderline personality disorder. Patient was previously on several different medications in the past including Prozac, BuSpar, trazodone, Effexor and Ativan. Patient was last psychiatrically hospitalized on the mental health unit in 2013. Patient currently goes to [facility] for weekly therapy and also sees the nurse practitioner for medications. She states that she had 1 suicide attempt when she was 9 years old when she tried us to strangle herself. Past Medical History: Supraventricular Tachycardia (SVT) Additional Past Medical History / Comment(s): SVT since age 5 under control ALLERGIES: as per EMR CHEMICAL DEPENDENCY HISTORY: as per HPI FAMILY PSYCHIATRIC/SUBSTANCE USE HISTORY: denies SOCIAL HISTORY: Patient was born and raised in [place] and also in [place]. She states that she has 2 associates degrees from [employer]. She claims that she does not have any kids is not and is currently unemployed. She currently lives in a apartment alone. She denies any legal history. MENTAL STATUS EXAM: General Appearance: Patient appears to have dyed red hair stated age is alert, difficult to direct at times and tearful during the interview. Patient appears to have poor hygiene and grooming. Behavior: Patient is seated without any agitated behavior. Tearful and upset. Speech: Patient's speech is fluent and nonpressured. Soft tone. Mood/Affect: Patient reports their mood is depressed, affect is congruent Suicidality/Homicidality: Patient denies having any homicidal ideation intent or plan. She claims that she has chronic suicidal thoughts however no intent or plan. Perceptions: Patient denies any visual hallucinations and denies any auditory hallucinations Though content/process: There is no evidence of any delusional thought content and thought process is linear and goal-directed. Focused on her symptoms and her diagnosis. Memory and concentration: AOX3, grossly intact for the purposes of this session. Can spell "WORLD" backwards Judgment and insight: poor STRENGTHS/WEAKNESSES: strength is that patient is resilient. Weakness is that patient has poor judgment and is impulsive INTELLECT: average IMPRESSIONS: Bipolar disorder, current episode depressed Borderline personality disorder Anxiety disorder unspecified Cannabis use disorder PLAN: -Patient is admitted under voluntary status to MHU for stabilization of psychiatric symptoms and safety. Patient has signed adult voluntary form and medication consent and is placed in patient's chart. -Medications : Will start patient on Lamictal 25 mg twice a day for mood stabilization/depression. Will decrease/taper off Effexor due to patient's request as she feels the medication is not helping her. She was agreeable to start Zoloft 25 mg starting tomorrow for mood/anxiety. Melatonin 10 mg daily at bedtime for sleep. -Ativan and Haldol PRN for agitation/aggression -Patient was counselled on substance abuse and desired to cut back on use -Patient was informed of the risks, benefits and side effects of the medication and patient verbally consented to taking the medications. Patient signed med consent form and was placed in chart. -Internal Medicine consult to perform medical evaluation and physical. -NRT -not needed as patient does not smoke -SW on board for discharge planning. Encourage patient to participate in groups to work on coping skills. 12/05/20 11:48
[2020-12-05 13:29] LABS: Hemoglobin A1C 4.5 % (4.0-6.0)
[2020-12-05] MEDS: NORETHINDRONE ACETATE PO SCH ×2 (13:35→21:47)
[2020-12-05] MEDS: [UNRECOGNIZED DRUG - OTHER] PO SCH ×2 (13:35→21:47)
[2020-12-05] MEDS: ETHINYL ESTRADIOL PO SCH ×2 (13:35→21:47)
[2020-12-05] MEDS: lamoTRIgine 25 MG TAB PO SCH ×2 (13:36→21:14)
[2020-12-05 14:00] LABS: Chol/HDL Ratio 3.11; Cholesterol 202 mg/dL (0-200); LDL Cholesterol,Calculated 116.8 mg/dL (0.0-131.0)
[2020-12-05] MEDS ORDERED: VENLAFAXINE HCL 37.5 MG TAB PO ONE (21:00)
[2020-12-05] MEDS: MELATONIN 5 MG TABLET PO SCH (21:12)
--- NOTE | 2020-12-05 22:19 | P.CONS ---
History of Present Illness - Reason for Consult Consult date: 12/05/20 - History of Present Illness The patient was seen and examined with the mental health unit RN Mickey. I was never alone with the patient. The patient is a 24-year-old female with a PMH of depression and anxiety who presented to the emergency room after a pickup order due to walking out on her psychiatrist appointment. The patient was admitted to the mental health unit where she was seen and evaluated. The patient states that she is not happy with her current psychiatrist as they are not able to understand each other. She reports that her unemployment benefits will be ending soon which is causing her a great deal of stress. She otherwise denied any additional complaints. Denied chest pain, SOB, fever, chills, cough. Denied nausea, vomiting, abdominal pain, or diarrhea. Denied tobacco or alcohol use. Denied illicit substance use. Review of systems: Pertinent positives and negatives as discussed in HPI, a complete review of systems was performed and all other systems are negative. Physical examination: General: non toxic, no distress, appears at stated age, normal weight Derm: no unusual rashes/lesions no unusual ecchymoses, warm, dry Head: atraumatic, normocephalic, symmetric Eyes: EOMI, no lid lag, anicteric sclera, pupils equal round reactive to light ENT: Nose and ears atraumatic, no thrush, no pharyngeal erythema Neck: No thyromegaly, no cervical lymphadenopathy, trachea midline, supple Mouth: no lip lesion, mucus membranes moist Cardiovascular: S1S2 reg, no murmur, positive posterior tibial pulse bilateral, no edema, capillary refill less than 2 seconds Lungs: CTA bilateral, no rhonchi, no rales , no accessory muscle use Abdominal: soft, nontender to palpation, no guarding, no appreciable organomegaly, normal bowel sounds Ext: no gross muscle atrophy, muscle strength 5 out of 5 in all 4 extremities grossly, no contractures, Neuro: CN II-XI grossly intact, light touch intact all 4 extremities, finger to nose within normal limits, Psych: Alert, oriented, appropriate affect Assessment/plan Anxiety, depression -As per psychiatry Thank you for allowing us to participate in the care of this patient. We will follow peripherally. Do not hesitate to contact us with questions. Someone can be reached from the [facility] hospitalist group at all hours of the day at [phone]. Past Medical History Past Medical History: Supraventricular Tachycardia (SVT) Additional Past Medical History / Comment(s): SVT since age 5 under control History of Any Multi-Drug Resistant Organisms: None Reported Past Surgical History: Adenoidectomy Smoking Status: Never smoker - Past Family History Mother Family Medical History: Hypertension Medications and Allergies Home Medications Medication Instructions Recorded Confirmed Type LORazepam [Ativan] 0.5 mg PO BID PRN 03/24/19 12/05/20 History Norethindrone AC-Eth Estradiol 1 tab PO DAILY 12/04/20 12/05/20 History [Aurovela 1 mg-20 Mcg Tablet] Venlafaxine HCl ER [Effexor XR] 75 mg PO DAILY 12/04/20 12/05/20 History Allergies Allergy/AdvReac Type Severity Reaction Status Date / Time loracarbef [From Lorabid] Allergy Rash/Hives Verified 12/04/20 23:19 Physical Exam Vitals: Vital Signs Temp Pulse Pulse Resp BP BP Pulse Ox 12/05/20 02:34 98.1 F 121 H 16 126/80 98 12/04/20 22:05 98 F 90 24 122/77 97 Intake and Output 12/05/20 12/05/20 12/05/20 06:59 14:59 22:59 Other: Weight 55 kg Results CBC & Chem 7: 12/05/20 07:01 12/05/20 07:01 Labs: Abnormal Lab Results - Last 24 Hours (Table) 12/04/20 12/05/20 12/05/20 Range/Units 22:10 07:01 07:01 RBC 3.74 L (3.80-5.40) m/uL MCV 101.7 H (80.0-100.0) fL Cholesterol 202 H (0-200) mg/dL HDL Cholesterol 65.0 H (40.0-60.0) mg/dL Urine Blood (Negative) Urine RBC (0-5) /hpf Ur Squamous Epith Cells (0-4) /hpf Urine Bacteria (None) /hpf U Marijuana (THC) Screen Detected H (NotDetected) 12/05/20 Range/Units Unknown RBC (3.80-5.40) m/uL MCV (80.0-100.0) fL Cholesterol (0-200) mg/dL HDL Cholesterol (40.0-60.0) mg/dL Urine Blood Large H (Negative) Urine RBC 6 H (0-5) /hpf Ur Squamous Epith Cells 6 H (0-4) /hpf Urine Bacteria Rare H (None) /hpf U Marijuana (THC) Screen (NotDetected)
[2020-12-06] MEDS: lamoTRIgine 25 MG TAB PO SCH ×2 (08:10→21:19)
[2020-12-06] MEDS: SERTRALINE 25 MG TAB PO SCH (08:10)
--- NOTE | 2020-12-06 10:08 | P.PN ---
Progress Note - Text Progress Note Date: 12/06/20 Interval History: Patient was seen wandering the hallways and was directable and agreeable to sp radha with technical writer and editor in the office. Patient appeared to be mildly less tearful today and less irritable during conversation. She spoke about her stressors at home including her relationship and also missing her cat. 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 She states that she is feeling less depressed today however continues to feel anxious about being here in the hospital. She claims that she is trying to go to group and participate whenever she can. She did state that she did not feel the activity group was helping her because they were telling her to get "more sleep". She states that she was able to sleep fairly last night with her melatonin. She states that she is feeling hopeful about the Lamictal and claims that she has never been on a mood stabilizer before. She was asking more questions about her medications and the dosing of them. At this time patient denies any suicidal or homical ideations, intent or plan. Patient denies any auditory, visual hallucinations and denies any paranoia or delusions. Patient denies any side effects from the medications and has been compliant with meds. Mental Status Exam: General Appearance: Patient appears to have dyed red hair stated age is alert, more directable today. Patient appears to have improving hygiene and grooming. Behavior: Patient is seated without any agitated behavior. Less tearful today. Speech: Patient's speech is fluent and nonpressured. Soft tone. Mood/Affect: Patient reports their mood is depressed, improving mildly, affect is congruent Suicidality/Homicidality: Patient denies having any homicidal ideation intent or plan. Denies any current suicidal ideations intent or plan. Perceptions: Patient denies any visual hallucinations and denies any auditory hallucinations Though content/process: There is no evidence of any delusional thought content and thought process is linear and goal-directed. Focused on her symptoms Memory and concentration: AOX3, grossly intact for the purposes of this session Judgment and insight: poor, improving mildly Assessment Bipolar disorder, current episode depressed Borderline personality disorder Anxiety disorder unspecified Cannabis use disorder Plan: -Patient continues to meet criteria for inpatient psychiatric admission for symptom stabilization and safety. Patient has signed adult voluntary form and medication consent and was placed in patient's chart. -Medications: Increase Lamictal to 25 mg daily +50 mg daily at bedtime for mood stabilization/depression. Continue Zoloft 25 mg daily for mood/anxiety. Me latonin 10 mg daily at bedtime for sleep. -When necessary Ativan and Haldol for agitation/aggression. -NRT - not needed as patient does not smoke. -SW on board for discharge planning. Encouraged the patient to participate in milieu.
[2020-12-06] MEDS ORDERED: NORETHINDRONE AC ETH ESTRADIOL PO SCH (21:00)
[2020-12-06] MEDS: NORETHINDRONE ACETATE PO SCH (21:17)
[2020-12-06] MEDS: [UNRECOGNIZED DRUG - OTHER] PO SCH (21:17)
[2020-12-06] MEDS: ETHINYL ESTRADIOL PO SCH (21:17)
[2020-12-06] MEDS: MELATONIN 5 MG TABLET PO SCH (21:19)
[2020-12-07] MEDS: SERTRALINE 25 MG TAB PO SCH (08:34)
[2020-12-07] MEDS ORDERED: lamoTRIgine 25 MG TAB PO SCH (09:00)
[2020-12-07] MEDS ORDERED: diphenhydrAMINE 25 MG CAP PO PRN (11:04)
--- NOTE | 2020-12-07 11:37 | P.PN ---
Progress Note - Text Progress Note Date: 12/07/20 Interval History: Patient was seen wandering the hallways and was directable and agreeable to sp radha with commercial real estate underwriter in the office. Patient was more directable during conversation appeared to be calmer. She states that she is feeling less depressed today however had multiple complaints about the group that she attended yesterday. She states that she is not getting along well with the activity therapist and claims that she felt her rights are violated when nursing students attended group. She was believing that she was "on display" while they were attending group. She states that she did speak with her mother who is taking care of her apartment and her cat. She states that she believes the medication has been helping her so far however had a lot of questions about her diagnosis and also her future and treatment. She states that she did not sleep well last night however was agreeable to take Benadryl as needed for tonight. At this time patient denies any suicidal or homical ideations, intent or plan. Patient denies any auditory, visual hallucinations and denies any paranoia or delusions. Patient denies any side effects from the medications and has been compliant with meds. Mental Status Exam: General Appearance: Patient appears to have dyed red hair stated age is alert, more directable today. Patient appears to have improving hygiene and grooming. Behavior: Patient is seated without any agitated behavior. Speech: Patient's speech is fluent and nonpressured. Mood/Affect: Patient reports their mood is depressed, improving mildly, affect is congruent Suicidality/Homicidality: Patient denies having any homicidal ideation intent or plan. Denies any current suicidal ideations intent or plan. Perceptions: Patient denies any visual hallucinations and denies any auditory hallucinations Though content/process: There is no evidence of any delusional thought content a nd thought process is linear and goal-directed. Focused on her symptoms and had significant complaints about the groups and activity therapy Memory and concentration: AOX3, grossly intact for the purposes of this session Judgment and insight: improving mildly Assessment Bipolar disorder, current episode depressed Borderline personality disorder Anxiety disorder unspecified Cannabis use disorder Plan: -Patient continues to meet criteria for inpatient psychiatric admission for symptom stabilization and safety. Patient has signed adult voluntary form and medication consent and was placed in patient's chart. -Medications: Increase Lamictal to 50 mg BID for mood stabilization/depression. increased Zoloft 50 mg daily for mood/anxiety. Melatonin 10 mg daily at bedtime for sleep. added Benadryl 25 mg qhs prn for insomnia -When necessary Ativan and Haldol for agitation/aggression. -NRT - not needed as patient does not smoke. -SW on board for discharge planning. Encouraged the patient to participate in milieu. likely discharge home tomorrow. Patient is interested in restarting DBT at [facility]
[2020-12-07] MEDS ORDERED: NORETHINDRONE AC ETH ESTRADIOL PO SCH (21:00)
[2020-12-07] MEDS: MELATONIN 5 MG TABLET PO SCH (22:56)
[2020-12-07] MEDS: lamoTRIgine 25 MG TAB PO SCH (22:56)
[2020-12-08 00:32] VITALS: BP 132/90; PULSE 98; RESP 14; TEMP 97.9
[2020-12-08] MEDS ORDERED: lamoTRIgine 25 MG TAB PO SCH (09:00)
[2020-12-08] MEDS ORDERED: SERTRALINE 50 MG TAB PO SCH (09:00)
--- NOTE | 2020-12-08 13:12 | P.DS ---
Providers Date of admission: 12/05/20 01:32 Attending physician: Rui Colon MD Consults: 12/05/20 01:45 Consult Physician Routine Consulting Provider: [facility] Consult Reason/Comments: H & P Do you want consulting provider notified?: Already Contacted Primary care physician: Stated None - Discharge Diagnosis(es) (1) Bipolar 2 disorder Current Visit: Yes Status: Chronic Priority: Medium (2) Borderline personality disorder Current Visit: Yes Status: Chronic Priority: High (3) Cannabis use disorder, mild, abuse Current Visit: Yes Status: Chronic Priority: Low Hospital Course: HISTORY: She is a 24-year-old single female who presented to the psychiatric unit involuntarily. Her bodily injury adjuster at [facility] completed the petition for hospitalization after making suicidal comments during a therapy session. She told the admitting psychiatrist that her relationship her new therapist at [facility] was not "going on well." She stated that she was feeling depressed and suicidal and claims that the therapist did not know "what to say to me." And she left the appointment early. Her stresses include unemployment and financial difficulties. She alleged that she has been chronically suicidal since she was young adolescent. She is had no prior psychiatric hospitalizations. Her past diagnoses include bipolar disorder and borderline personality disorder. She is been treated with multiple medications including Prozac, BuSpar, trazodone, Effexor and Ativan. She has last admitted to this psychiatric unit 2013. She meets with this therapist that [facility] weekly and sees a nurse professional for medication. She alleged she had one suicide attempt which was 9 years old. HOSPITAL COURSE: To the psychiatric unit under the care of Dr. rogelio hernadez. We provided a comprehensive biopsychosocial assessment. The senior billing consultant wrapper cashier completed initial physical exam and medical history and did not diagnose a major medical problem. We discontinued her outpatient dose of Effexor and started the antidepressant Zoloft. We also prescribed Lamictal and titrate dose to 100 mg daily. She reported no adverse effects to from the new medications. She described in improvement of her mood and a decrease in anxiety. We discussed treatment options and she agreed to referral for [facility] and to the dialectical behavioral program through [facility]. MENTAL STATUS ON DISCHARGE: . She presented as a casually groomed 34-year-old female who was pleasant on approach. She made eye contact and attended to the interview. She had no distinction features are prominent physical abnormalities. She had a blunted but bright facial expression. She was alert and oriented to person, place and time. She had slight psychomotor retardation but no abnormal involuntary movements. Her speech was spontaneous with normal rate, rhythm and volume. Her affect was blunted but stable and appropriate. She denied suicidal ideation and wishes. She denied homicidal ideation. She denied feeling hopeless, helpless or worthless. She did not express ideas reference, paranoid ideation or delusions. Her thinking was abstract and her associations were coherent, logical and goal directed. She denied hallucinations and did not appear to be responding to internal stimuli. DISPOSITION: She'll return to her prior address. Her discharge medications include Zoloft 50 mg daily, melatonin 10 mg at bedtime, Lamictal 100 mg daily and Benadryl 25 mg at bedtime when necessary for sleep. She has a appointment with [facility] on 12/12/2020 at 11:30 AM and we are waiting confirmation [facility]. Patient Condition at Discharge: Stable Plan - Discharge Summary Discharge Rx Participant: No New Discharge Prescriptions: New diphenhydrAMINE [Benadryl] 25 mg PO HS PRN cap PRN Reason: Insomnia lamoTRIgine 100 mg PO DAILY #30 tablet Melatonin 10 mg PO HS #30 tablet Sertraline [Zoloft] 50 mg PO DAILY #30 tab Continue Norethindrone AC-Eth Estradiol [Aurovela 1 mg-20 Mcg Tablet] 1 tab PO DAILY Discontinued LORazepam [Ativan] 0.5 mg PO BID PRN PRN Reason: Anxiety Venlafaxine HCl ER [Effexor XR] 75 mg PO DAILY Discharge Medication List Norethindrone AC-Eth Estradiol [Aurovela 1 mg-20 Mcg Tablet] 1 tab PO DAILY 12/04/20 [History] Melatonin 10 mg PO HS #30 tablet 12/08/20 [Rx] Sertraline [Zoloft] 50 mg PO DAILY #30 tab 12/08/20 [Rx] diphenhydrAMINE [Benadryl] 25 mg PO HS PRN cap 12/08/20 [Rx] lamoTRIgine 100 mg PO DAILY #30 tablet 12/08/20 [Rx] Follow up Appointment(s)/Referral(s): [facility] [Outside] - 12/12/20 11:30 am (12-12-20 at 11:[address] Braxton 12-13-20 at 9:00 with Elvira Mercado 12-14-20 at 3:00 with Mable Oliva ) None,Stated [Primary Care Provider] - 1-2 days Activity/Diet/Wound Care/Special Instructions: Activity and diet as tolerated. Avoid the use of street drugs and alcohol. Take all medications as prescribed. When you are in need of refills on your medications please contact your medical provider and/or outpatient psychiatrist to have this done. Please go to scheduled outpatient appointment for aftercare treatment. If symptoms return or become worse, call the crisis line at and/or go to the nearest emergency room for evaluation. Discharge Disposition: HOME SELF-CARE
== END 2020-12-08 15:08 | disposition home or self-care (01) | DRG 885 ==
LOC: EC 21:56 → 3MHU 12-05 01:32
PROVIDERS: ADMIT Psychiatry & Neurology Psychiatry; ATTEND Psychiatry & Neurology Psychiatry
DX: F31.81 Bipolar II disorder (principal); R45.851 Suicidal ideations; I47.1 Supraventricular tachycardia; F12.10 Cannabis abuse, uncomplicated; F60.3 Borderline personality disorder; Z20.822 Contact with and (suspected) exposure to COVID-19; F41.9 Anxiety disorder, unspecified; Z79.3 Long term (current) use of hormonal contraceptives; Z79.899 Other long term (current) drug therapy; Z88.1 Allergy status to other antibiotic agents; Z90.89 Acquired absence of other organs; Z56.0 Unemployment, unspecified; Z60.2 Problems related to living alone; Z98.890 Other specified postprocedural states; Z82.49 Family history of ischemic heart disease and other diseases of the circulatory system
CPT/HCPCS: 80053; 80061; 80306; 81001; 81025; 82075; 82248; 83036; 84443; 85025; 87635; 99285

== ENCOUNTER → 2021-03-22 | Outpatient (CLI) | payer OTHER ==
[2021-03-23 01:45] LABS: African American GFR (CKD) 118.2 (60.0-200.0); Albumin 4.8 g/dL (3.8-4.9); Albumin/Globulin Ratio 2.21 (1.60-3.17); Anion Gap 14.8 mmol/L (10.00-18.00); BUN/Creat Ratio 13.22 Ratio (12.00-20.00); Blood Urea Nitrogen 10.5 mg/dL (9.0-27.0); Calcium 9.4 mg/dL (8.7-10.3); Carbon Dioxide 20.6 mmol/L (20.0-27.5); Globulin 2.2 g/dL (1.6-3.3); Potassium 3.8 mmol/L (3.5-5.5); Total Bilirubin 0.4 mg/dL (0.30-1.20); Total Protein 6.9 g/dL (6.2-8.2)
== END | disposition home or self-care (01) ==
LOC: LABWHC1 14:36
PROVIDERS: ATTEND Internal Medicine Interventional Cardiology
DX: J47.1 Bronchiectasis with (acute) exacerbation (principal)
CPT/HCPCS: 36415; 80053

== ENCOUNTER → 2021-05-30 | Outpatient (CLI) | payer OTHER | END | disposition home or self-care (01) | LOC: RADBDWWP 08:41 | PROVIDERS: ATTEND Internal Medicine | DX: Z53.9 Procedure and treatment not carried out, unspecified reason (principal) ==

== ENCOUNTER 2021-06-27 21:00 | Emergency (ER) | payer OTHER ==
[2021-06-27] MEDS ORDERED: LORazepam 0.5 MG TAB ONE (22:07)
== END 2021-06-27 22:59 | disposition home or self-care (01) ==
LOC: EC 21:00
DX: F41.9 Anxiety disorder, unspecified (principal)
CPT/HCPCS: 99283

== ENCOUNTER 2024-09-24 09:14 | Emergency (ER) | payer OTHER ==
[2024-09-24 09:21] VITALS: TEMP 97.3
[2024-09-24] MEDS: SODIUM CHLORIDE 0.9% 1,000 ML IV STA (09:30)
--- NOTE | 2024-09-24 09:38 | ED ---
General Adult HPI - General Chief complaint: Arrhythmia/Palpitations Stated complaint: SVT episode Time Seen by Provider: 09/24/24 09:23 Source: patient Mode of arrival: ambulatory Limitations: no limitations - History of Present Illness Initial comments: Dictation was produced using [employer] dictation software. please excuse any grammatical, word or spelling errors. Chief Complaint: 28-year-old female with SVT History of Present Illness: Patient 28-year-old female has history of SVT. She was diagnosed with SVT since a child. She sees cardiology at [facility] supposed to have an ablation in the near future she does not take any cardiac medications to suppress her SVT. Patient states she had palpitations starting at 10 PM last night. Patient reports that she gets SVT episodes often. Denies any chest pain. The ROS documented in this emergency department record has been reviewed and confirmed by me. Those systems with pertinent positive or negative responses have been documented in the HPI. All other systems are other negative and/or noncontributory. - Related Data Home Medications Medication Instructions Recorded Confirmed Blisovi Fe 04/26 1 tab PO DAILY 07/04/21 07/04/21 Calcium Carbonate/Vitamin D3 1 cap PO BID 07/04/21 07/04/21 [Calcium 600 mg-D3 10 Mcg (400 Iu)] Cyanocobalamin [Vitamin B-12 1,000 mcg SQ TU 07/04/21 07/04/21 Injection] Ergocalciferol (Vitamin D2) 1,250 mcg PO SA 07/04/21 07/04/21 [Drisdol (50,000 Iu)] Multivitamins, Thera [Multivitamin 1 tab PO DAILY 07/04/21 07/04/21 (formulary)] Previous Rx's Medication Instructions Recorded ARIPiprazole [Abilify] 10 mg PO HS 14 Days tab 07/09/21 clonazePAM [KlonoPIN] 0.5 mg PO TID PRN 14 Days tab 07/09/21 Allergies Allergy/AdvReac Type Severity Reaction Status Date / Time loracarbef [From Lorabid] Allergy Rash/Hives Verified 09/24/24 09:21 Review of Systems ROS Statement: Those systems with pertinent positive or pertinent negative responses have been documented in the HPI. ROS Other: All systems not noted in ROS Statement are negative. Past Medical History Past Medical History: Supraventricular Tachycardia (SVT) Additional Past Medical History / Comment(s): SVT since age 5 under control History of Any Multi-Drug Resistant Organisms: None Reported Past Surgical History: Adenoidectomy Past Psychological History: Anxiety, Bipolar, Depression Smoking Status: Never smoker Past Alcohol Use History: Occasional Past Drug Use History: Marijuana - Past Family History Mother Family Medical History: Hypertension General Exam - General Exam Comments Initial Comments: PHYSICAL EXAM: General Impression: Alert and oriented x3, not in acute distress HEENT: Normocephalic atraumatic, extra-ocular movements intact, pupils equal and reactive to light bilaterally, mucous membranes moist. Cardiovascular: Tachycardic Chest: Able to complete full sentences, no retractions, no tachypnea Abdomen: abdomen soft, non-tender, non-distended, no organomegaly Musculoskeletal: Pulses present and equal in all extremities, no peripheral edema Motor: no focal deficits noted Neurological: CN II-XII grossly intact, no focal motor or sensory deficits noted Skin: Intact with no visualized rashes Psych: Normal affect and mood Limitations: no limitations Course Vital Signs 09/24/24 09/24/24 09/24/24 09:15 09:31 09:45 Temperature 97.3 F L Pulse Rate 206 H 117 H 101 H Respiratory 22 20 18 Rate Blood Pressure 110/74 108/84 O2 Sat by Pulse 100 100 100 Oximetry 09/24/24 10:00 Temperature Pulse Rate 106 H Respiratory 19 Rate Blood Pressure 114/84 O2 Sat by Pulse 100 Oximetry - Reevaluation(s) Reevaluation #1: 09/24/24 09:38 Triage vitals shows that patient heart rate of 206 she was moved to a room quickly. By the time EKG was performed patient was in sinus tachycardia with a rate of 121. Patient had converted to sinus tachycardia EKG Findings - EKG Comments: EKG Findings:: My EKG interpretation: Ventricular rate 121, sinus tachycardia,. 136, QRS 80, QTc 365. No FL prolongation, no QTC prolongation, no ST or T-wave changes noted. Overall, this EKG is unremarkable Medical Decision Making - Medical Decision Making Was pt. sent in by a medical professional or institution (, PA, [employer], urgent care, hospital, or intermediate...) When possible be specific @ -No Did you speak to anyone other than the patient for history (EMS, parent, family, police, friend...)? What history was obtained from this source @ -No Did you review nursing and triage notes (agree or disagree)? Why? @ -I reviewed and agree with nursing and triage notes Were old charts reviewed (outside hosp., previous admission, EMS record, old EKG, old radiological studies, urgent care reports/EKG's, intermediate records)? Report findings @ -No old charts were reviewed Differential Diagnosis (chest pain, altered mental status, abdominal pain women, abdominal pain men, vaginal bleeding, musculoskeletal, weakness, fever, dyspnea, syncope, headache, dizziness, GI bleed, back pain, seizure, CVA, palpatations, mental health)? @ - Differential Palpitations: Ventricular arrhythmias, atrial arrhythmias, myocardial infarction, anemia, thyrotoxicosis, electrolyte imbalance, hypokalemia, pulmonary embolism, pulmonary disease, drugs, alcohol, anxiety, stress.... This is not meant to be an all-inclusive list. EKG interpreted by me (3pts min.). @ -See above X-rays interpreted by me (1pt min.). @ -X-ray is nonacute CT interpreted by me (1pt min.). @ -None done U/S interpreted by me (1pt. min.). @ -None done What testing was considered but not performed or refused? (CT, X-rays, U/S, labs)? Why? @ -None What meds were considered but not given or refused? Why? @ -None Was smoking cessation discussed for >3mins.? @ -No Were there social determinants of health that impacted care today? How? (Homelessness, low income, unemployed, alcoholism, drug addiction, transportation, low edu. Level, literacy, decrease access to med. care, halfway, r ehab)? @ -No Was there de-escalation of care discussed even if they declined (Discuss DNR or withdrawal of care, Hospice)? DNR status @ -No What co-morbidities impacted this encounter? (DM, HTN, Smoking, COPD, CAD, Cancer, CVA, ARF, Chemo, Hep., AIDS, mental health diagnosis, sleep apnea, morbid obesity)? @ -History of SVT Was patient admitted / discharged? Hospital course, mention meds given and route, prescriptions, significant lab abnormalities, going to OR and other pertinent info. @ -28-year-old female with chief complaint of palpitations and a history of SVT. In triage her heart rate was found to be 206. By the time she came back to the room an EKG was performed and placement based on monitoring engineer heart rate is in the 1 teens. EKG shows sinus tachycardia. Laboratory evaluation is unremarkable. Patient given metoprolol. Observed in the ER for hour and a half. Reevaluated at 1044 finally stable to condition. Patient discharged vies follow-up with peoplesoft analyst. Did you discuss the management of the patient with other professionals (professionals i.e. , PA, [employer], lab, RT, psych nurse, social science research assistant, pipe fitter gas pipe, teacher, air intelligence officer, casework supervisor)? Give summary @ -No Was critical care preformed (if so, how long)? @ -No Undiagnosed new problem with uncertain prognosis? @ -No Drug Therapy requiring intensive monitoring for toxicity (Heparin, Nitro, Insulin, Cardizem)? @ -No Were any procedures done? @ -No Diagnosis/symptom? Acute, or Chronic, or Acute on Chronic? Uncomplicated (without systemic symptoms) or Complicated (systemic symptoms)? @ -Palpitations Side effects of treatment? @ -No Exacerbation, Progression, or Severe Exacerbation? @ -No Poses a threat to life or bodily function? How? (Chest pain, USA, MT, pneumonia, PE, COPD, DKA, ARF, appy, cholecystitis, CVA, Diverticulitis, Homicidal, Suicidal, threat to staff... and all critical care pts) @ -yes - Lab Data Result diagrams: 09/24/24 09:31 09/24/24 09:31 Lab Results 09/24/24 09/24/24 09/24/24 Range/Units 09:31 09:31 09:31 WBC 8.06 (4.50-10.00) 10*3/uL RBC 4.33 (4.10-5.20) 10*6/uL Hgb 14.5 (12.0-15.0) g/dL Hct 42.8 (37.2-46.3) % MCV 98.8 H (80.0-97.0) fL MCH 33.5 H (27.0-32.0) pg MCHC 33.9 (32.0-37.0) g/dL Plt Count 359 (140-440) 10*3/uL MPV 10.3 (9.5-12.2) fL Immature Gran % (Auto) 0.1 % Neutrophils % 55.8 % Lymphocytes % 29.4 % Monocytes % 10.2 % Eosinophils % 3.8 % Basophils % 0.7 % Immature Gran # 0.01 (0.00-0.04) 10*3/uL Neutrophils # 4.49 (1.80-7.70) 10*3/uL Lymphocytes # 2.37 (0.90-5.00) 10*3/uL Monocytes # 0.82 (0.20-1.00) 10*3/uL Eosinophils # 0.31 (0.04-0.35) 10*3/uL Basophils # 0.06 (0.00-0.10) 10*3/uL Sodium 141 (137-145) mmol/L Potassium 4.0 (3.5-5.1) mmol/L Chloride 109 H (98-107) mmol/L Carbon Dioxide 20 L (22-30) mmol/L Anion Gap 12 mmol/L BUN 13 (7-17) mg/dL Creatinine 0.72 (0.52-1.04) mg/dL Est GFR (CKD-EPI)AfAm >90 (>60 ml/min/1.73 sqM) Est GFR (CKD-EPI)NonAf >90 (>60 ml/min/1.73 sqM) Glucose 130 H (74-99) mg/dL Calcium 9.3 (8.4-10.2) mg/dL Magnesium 2.0 (1.6-2.3) mg/dL Troponin I <0.012 (0.000-0.034) ng/mL Disposition Clinical Impression: Palpitations Disposition: HOME SELF-CARE Condition: Fair Instructions (If sedation given, give patient instructions): Heart Palpitations (ED) Is patient prescribed a controlled substance at d/c from ED?: No Referrals: Shahida Kaur MD [Primary Care Provider] - 1-2 days Time of Disposition: 10:44
[2024-09-24] MEDS: ADENOSINE 3 MG/ML 2 ML VIAL IVP STA (09:46)
--- NOTE | 2024-09-24 09:48 | XR ---
EXAMINATION TYPE: XR chest 1V portable DATE OF EXAM: 09/24/2024 9:44 AM COMPARISON: Chest radiographs from 03/24/2019. CLINICAL INDICATION: Female, 28 years old with history of supraventricular tachycardia. TECHNIQUE: XR chest 1V portable Frontal view of the chest. FINDINGS: Lungs/Pleura: There is no evidence of pleural effusion, focal consolidation, or pneumothorax. Pulmonary vascularity: Unremarkable. Heart/mediastinum: Cardiomediastinal silhouette is unremarkable. Musculoskeletal: No acute osseous pathology. IMPRESSION: No acute cardiopulmonary disease/process. [facility], , 09/24/2024 9:46 AM
[2024-09-24] MEDS: METOPROLOL TARTRATE 25 MG TAB PO STA (09:49)
[2024-09-24 09:56] LABS: Basophils # (A) 0.06 10*3/uL (0.00-0.10); Basophils % (A) 0.7 %; Eosinophils # (A) 0.31 10*3/uL (0.04-0.35); Eosinophils % (A) 3.8 %; HCT 42.8 % (37.2-46.3); HGB 14.5 g/dL (12.0-15.0); Lymphocytes # (A) 2.37 10*3/uL (0.90-5.00); Lymphocytes % (A) 29.4 %; MCH 33.5 pg (27.0-32.0); MCHC 33.9 g/dL (32.0-37.0); MCV 98.8 fL (80.0-97.0); Mean Platelet Volume 10.3 fL (9.5-12.2); Monocytes # (A) 0.82 10*3/uL (0.20-1.00); Monocytes % (A) 10.2 %; Neutrophils # (A) 4.49 10*3/uL (1.80-7.70); Neutrophils % (A) 55.8 %; Platelet Count 359 10*3/uL (140-440); RBC 4.33 10*6/uL (4.10-5.20); WBC 8.06 10*3/uL (4.50-10.00)
[2024-09-24 10:07] LABS: African American GFR (CKD) >90 (>60 ml/min/1.73 sqM); Anion Gap 12 mmol/L; Blood Urea Nitrogen 13 mg/dL (7-17); Calcium 9.3 mg/dL (8.4-10.2); Carbon Dioxide 20 mmol/L (22-30); Chloride 109 mmol/L (98-107); Glucose 130 mg/dL (74-99); Non-African American GFR(CKD) >90 (>60 ml/min/1.73 sqM); Sodium 141 mmol/L (137-145)
[2024-09-24 11:17] VITALS: BP 103/72; PULSE 88; RESP 18
== END 2024-09-24 11:15 | disposition home or self-care (01) ==
LOC: EC 09:14
DX: R00.2 Palpitations (principal); I47.10 Supraventricular tachycardia, unspecified; Z88.1 Allergy status to other antibiotic agents
CPT/HCPCS: 36415; 71045; 80048; 83735; 84484; 85025; 93005; 96360; 99285

== ENCOUNTER 2024-10-05 17:05 | Emergency (ER) | payer OTHER ==
[2024-10-05 17:13] VITALS: BP 159/80; PULSE 109; RESP 16; TEMP 98.2
--- NOTE | 2024-10-05 17:51 | ED ---
Psych HPI - General Source: patient, RN notes reviewed Mode of arrival: EMS <Martha Padilla - Last Filed: 10/05/24 19:03> <Josy Mckoy - Last Filed: 10/06/24 00:11> - General Chief Complaint: Psychiatric Symptoms Stated Complaint: Suicidal Time Seen by Provider: 10/05/24 17:20 - History of Present Illness Initial Comments: 28-year-old female with history of anxiety depression presenting to emergency department via EMS for concerns of anxiety. Patient states that earlier today she was informed by her therapist that she been overseen by her and is concerned that she does not have appropriate follow-up. Additionally, patient was worried that she had a dentist appointment afternoon that she [place] to going to the dentist. She states that she feels overwhelmed and scared and is looking for resources. Patient states that she has chronic suicidal ideation with intent but no current plan. Denies homicidal ideation. Denies auditory or visual hallucinations. Denies drug or alcohol use. Denies chance of . (Martha Padilla) - Related Data Home Medications Medication Instructions Recorded Confirmed LORazepam [Ativan] 0.5 mg PO DAILY PRN 10/05/24 10/05/24 Vortioxetine Hydrobromide 20 mg PO HS 10/05/24 10/05/24 [Trintellix] norethindrone-e.estradioL-iron 1 tab PO HS 10/05/24 10/05/24 [Aurovela 24 Fe 1 mg-20 Mcg Tab] Allergies Allergy/AdvReac Type Severity Reaction Status Date / Time loracarbef [From Lorabid] Allergy Rash/Hives Verified 10/05/24 20:06 Review of Systems ROS Other: All systems not noted in ROS Statement are negative. <Martha Padilla - Last Filed: 10/05/24 19:03> ROS Other: All systems not noted in ROS Statement are negative. <Josy Mckoy - Last Filed: 10/06/24 00:11> ROS Statement: Those systems with pertinent positive or pertinent negative responses have been documented in the HPI. Past Medical History Past Medical History: Supraventricular Tachycardia (SVT) Additional Past Medical History / Comment(s): SVT since age 5 under control History of Any Multi-Drug Resistant Organisms: None Reported Past Surgical History: Adenoidectomy Past Psychological History: Anxiety, Bipolar, Depression Smoking Status: Never smoker Past Alcohol Use History: Occasional Past Drug Use History: Marijuana - Past Family History Mother Family Medical History: Hypertension <RandyMartha - Last Filed: 10/05/24 19:03> General Exam Limitations: no limitations General appearance: alert, in no apparent distress, anxious Neck exam: Present: normal inspection. Absent: tenderness, meningismus, lymphadenopathy Respiratory exam: Present: normal lung sounds bilaterally. Absent: respiratory distress, wheezes, rales, rhonchi, stridor Cardiovascular Exam: Present: regular rate, normal rhythm, normal heart sounds. Absent: systolic murmur, diastolic murmur, rubs, gallop, clicks GI/Abdominal exam: Present: soft, normal bowel sounds. Absent: distended, tenderness, guarding, rebound, rigid Psychiatric exam: Present: normal affect. Absent: normal mood, flat affect, suicidal ideation <Martha Padilla - Last Filed: 10/05/24 19:03> Course Vital Signs 10/05/24 17:09 Temperature 98.2 F Pulse Rate 109 H Respiratory 16 Rate Blood Pressure 159/80 O2 Sat by Pulse 100 Oximetry Medical Decision Making <Martha Padilla - Last Filed: 10/05/24 19:03> <Josy Mckoy - Last Filed: 10/06/24 00:11> - Medical Decision Making Was pt. sent in by a medical professional or institution (KEN Martinez, STRATEGIC DEBRIEFING OFFICER, urgent care, hospital, or [place] [facility] [place]...) When possible be specific @ -[No] Did you speak to anyone other than the patient for history (EMS, parent, family, police, friend...)? What history was obtained from this source @ -[No] Did you review nursing and triage notes (agree or disagree)? Why? @ -[I reviewed and agree with nursing and triage notes] Were old charts reviewed (outside hosp., previous admission, EMS record, old EKG, old radiological studies, urgent care reports/EKG's, [place] [facility] [place] records)? Report findings @ -[No old charts were reviewed] Differential Diagnosis (chest pain, altered mental status, abdominal pain women, abdominal pain men, vaginal bleeding, weakness, fever, dyspnea, syncope, headache, dizziness, GI bleed, back pain, seizure, CVA, palpatations, mental health, musculoskeletal)? @ -Differential Mental Health Depression, anxiety, bipolar, psychosis, schizophrenia, borderline personality, situational depression, adjustment disorder, behavioral disorder, brain tumor, malingering, substance abuse, encephalopathy, medication reaction, dementia, hypothyroidism, degenerative neurologic disorder, lupus.... This is not meant to be all-inclusive list EKG interpreted by me (3pts min.). @ -None X-rays interpreted by me (1pt min.). @ -[None done] CT interpreted by me (1pt min.). @ -[None done] U/S interpreted by me (1pt. min.). @ -[None done] What testing was considered but not performed or refused? (CT, X-rays, U/S, labs)? Why? @ -[None] What meds were considered but not given or refused? Why? @ -[None] Did you discuss the management of the patient with other professionals (professionals i.e. , PA, STRATEGIC DEBRIEFING OFFICER, lab, RT, psych nurse, renal social worker, technical project coordinator, teacher, boat officer, correctional counselor/case manager)? Give summary @ -[No] Was smoking cessation discussed for >3mins.? @ -[No] Was critical care preformed (if so, how long)? @ -[No] Were there social determinants of health that impacted care today? How? (Homelessness, low income, unemployed, alcoholism, drug addiction, transportation, low edu. Level, literacy, decrease access to med. care, long term, rehab)? @ -[No] Was there de-escalation of care discussed even if they declined (Discuss DNR or withdrawal of care, Hospice)? DNR status @ -[No] What co-morbidities impacted this encounter? (DM, HTN, Smoking, COPD, CAD, Cancer, CVA, ARF, Chemo, Hep., AIDS, mental health diagnosis, sleep apnea, morbid obesity)? @ -[None] Was patient admitted / discharged? Hospital course, mention meds given and route, prescriptions, significant lab abnormalities, going to OR and other pertinent info. @ -28-year-old female presenting via EMS for acute anxiety. Patient is cleared for mental-health evaluation is signed out to my colleague, Josy Mckoy PA-C pending EPS evaluation and disposition. Undiagnosed new problem with uncertain prognosis? @ -[No] Drug Therapy requiring intensive monitoring for toxicity (Heparin, Nitro, Insulin, Cardizem)? @ -[No] Were any procedures done? @ -[No] Diagnosis/symptom? @ -[default] Acute, or Chronic, or Acute on Chronic? @ -[default] Uncomplicated (without systemic symptoms) or Complicated (systemic symptoms)? @ -[default] Side effects of treatment? @ -[No] Exacerbation, Progression, or Severe Exacerbation? @ -[No] Poses a threat to life or bodily function? How? (Chest pain, USA, DC, pneumonia, PE, COPD, DKA, ARF, appy, cholecystitis, CVA, Diverticulitis, Homicidal, Suicidal, threat to staff... and all critical care pts) @ -[No] (Martha Padilla) Was pt. sent in by a medical professional or institution (, PA, STRATEGIC DEBRIEFING OFFICER, urgent care, hospital, or [place]...) When possible be specific @ -No Did you speak to anyone other than the patient for history (EMS, parent, family, police, friend...)? What history was obtained from this source @ -No Did you review nursing and triage notes (agree or disagree)? Why? @ -I reviewed and agree with nursing and triage notes Were old charts reviewed (outside hosp., previous admission, EMS record, old EKG, old radiological studies, urgent care reports/EKG's, [place] [facility] [place] records)? Report findings @ -No old charts were reviewed Differential Diagnosis (chest pain, altered mental status, abdominal pain women, abdominal pain men, vaginal bleeding, weakness, fever, dyspnea, syncope, headache, dizziness, GI bleed, back pain, seizure, CVA, palpatations, mental health, musculoskeletal)? @ -Differential Mental Health Depression, anxiety, bipolar, psychosis, schizophrenia, borderline personality, situational depression, adjustment disorder, behavioral disorder, brain tumor, malingering, substance abuse, encephalopathy, medication reaction, dementia, hypothyroidism, degenerative neurologic disorder, lupus.... This is not meant to be all-inclusive list EKG interpreted by me (3pts min.). @ -None X-rays interpreted by me (1pt min.). @ -None done CT interpreted by me (1pt min.). @ -None done U/S interpreted by me (1pt. min.). @ -None done What testing was considered but not performed or refused? (CT, X-rays, U/S, labs)? Why? @ -None What meds were considered but not given or refused? Why? @ -None Did you discuss the management of the patient with other professionals (professionals i.e. , PA, STRATEGIC DEBRIEFING OFFICER, lab, RT, psych nurse, renal social worker, technical project coordinator, teacher, boat officer, correctional counselor/case manager)? Give summary @ -I spoke with Ella from EPS who determines that patient does not meet inpatient criteria at this time and patient can be safely discharged with safety plan Was smoking cessation discussed for >3mins.? @ -No Was critical care preformed (if so, how long)? @ -No Were there social determinants of health that impacted care today? How? (Homelessness, low income, unemployed, alcoholism, drug addiction, transportation, low edu. Level, literacy, decrease access to med. care, long term, rehab)? @ -No Was there de-escalation of care discussed even if they declined (Discuss DNR or withdrawal of care, Hospice)? DNR status @ -No What co-morbidities impacted this encounter? (DM, HTN, Smoking, COPD, CAD, Cancer, CVA, ARF, Chemo, Hep., AIDS, mental health diagnosis, sleep apnea, morbid obesity)? @ -None Was patient admitted / discharged? Hospital course, mention meds given and route, prescriptions, significant lab abnormalities, going to OR and other pertinent info. @ -Discharge. 28-year-old female presenting for anxiety. Case was signed out to me by Martha Padilla PA-C pending evaluation by EPS and disposition. I spoke with Ella from EPS who determines that patient does not meet inpatient criteria at this time and patient can be safely discharged with safety plan. Mother is agreeable to plan. Case was discussed with my ED attending Dr. Dunn. Undiagnosed new problem with uncertain prognosis? @ -No Drug Therapy requiring intensive monitoring for toxicity (Heparin, Nitro, Insulin, Cardizem)? @ -No Were any procedures done? @ -No Diagnosis/symptom? @ -Anxiety Acute, or Chronic, or Acute on Chronic? @ -Acute Uncomplicated (without systemic symptoms) or Complicated (systemic symptoms)? @ -Complicated Side effects of treatment? @ -No Exacerbation, Progression, or Severe Exacerbation? @ -No Poses a threat to life or bodily function? How? (Chest pain, USA, DC, pneumonia, PE, COPD, DKA, ARF, appy, cholecystitis, CVA, Diverticulitis, Homicidal, Suicidal, threat to staff... and all critical care pts) @ -Unlikely at this time (Josy Mckoy) Disposition <Martha Padilla - Last Filed: 10/05/24 19:03> Is patient prescribed a controlled substance at d/c from ED?: No Time of Disposition: 22:38 <Josy Mckoy - Last Filed: 10/06/24 00:11> Clinical Impression: Anxiety Disposition: HOME SELF-CARE Condition: Stable Additional Instructions: Please return to the Emergency Department if symptoms worsen or any other concerns. Referrals: Shahida Kaur MD [Primary Care Provider] - 1-2 days
== END 2024-10-05 22:43 | disposition home or self-care (01) ==
LOC: EC 17:05
DX: F41.9 Anxiety disorder, unspecified (principal); Z88.1 Allergy status to other antibiotic agents
CPT/HCPCS: 82075; 99284